=== PATIENT | male | born 1940 | race Caucasian/White ===

== ENCOUNTER → 2023-03-24 10:49 | Outpatient (REF) | payer MEDICARE, BC, SELFPAY ==
[2023-03-24 11:49] LABS: % Basophils 1.3 % (0-2); % Eosinophils 2.7 % (0-6); % Immature Granulocytes 0.3 % (0-0.5); % Lymphocytes 12.1 % (20.5-51.1); % Monocytes 7.9 % (1.7-9.3); % Neutrophils 75.7 % (42.2-75.2); Absolute Basophils 0.2 10^3/uL (0-0.2); Absolute Eosinophils 0.3 10^3/uL (0-0.7); Absolute Lymphocytes 1.5 10^3/uL (1.2-3.4); Absolute Neutrophils 9.5 10^3/uL (1.4-6.5); Hemoglobin 10.1 g/dL (13.0-18.0); Mean Corp Hgb Conc. 32.6 g/dL (33.0-37.0); Mean Corpuscular Hgb 29.3 pg (27.0-31.0); Mean Corpuscular Volume 89.9 fL (80.0-94.0); Mean Platelet Volume 11.3 fL (7.4-10.4); Nucleated Red Blood Cells % 0 % (-); Platelet Count 283 10^3/uL (130-400); Red Blood Cell Count 3.45 10^6/uL (4.70-6.10); Red Cell Dist. Width 13.8 % (11.5-14.5); White Blood Cell Count 12.6 10^3/uL (4.8-10.8)
[2023-03-24 11:50] LABS: Ionized Calcium 1.36 mMOL/L (1.15-1.33)
[2023-03-24 12:19] LABS: ALT (SGPT) 27 U/L (0-50); AST (SGOT) 26 U/L (17-59); Albumin 3.7 g/dl (3.5-5.0); Alkaline Phosphatase 78 U/L (38-126); Blood Urea Nitrogen 36 mg/dl (9-20); Calcium 10.3 mg/dl (8.4-10.2); Carbon Dioxide 24 mmol/L (22-30); Chloride 105 mmol/L (98-107); Glucose 99 mg/dl (70-99); Potassium 4.4 mmol/L (3.5-5.1); Sodium 139 mmol/L (135-145); Total Bilirubin 0.4 mg/dl (0.2-1.3); Total Protein 6.4 g/dl (6.3-8.2); eGFR 32.71
[2023-03-25 09:15] LABS: Intact PTH 120.8 pg/ml (13.6-85.8)
== END ==
LOC: REG 10:49
PROVIDERS: ATTENDING PHYSICIAN Internal Medicine Nephrology; FAMILY PHYSICIAN Internal Medicine; REFERRING PHYSICIAN Internal Medicine
DX: N18.32 Chronic kidney disease, stage 3b (principal)
CPT/HCPCS: 36415; 80053; 82330; 83970; 85025

== ENCOUNTER → 2023-04-07 10:20 | Outpatient (REF) | payer MEDICARE, BC, SELFPAY ==
[2023-04-07 11:59] LABS: Protein/creatinine Ratio 0.1; Urine Protein 9 mg/dl
[2023-04-07 12:23] LABS: Glycohemoglobin (HgbA1c) 5.9 % (4.0-5.6)
[2023-04-07 13:03] LABS: Blood Urea Nitrogen 48 mg/dl (9-20); Calcium 10.3 mg/dl (8.4-10.2); Carbon Dioxide 22 mmol/L (22-30); Chloride 110 mmol/L (98-107); Glucose 95 mg/dl (70-99); HDL Cholesterol 50 mg/dl; LDL Cholesterol, Calculated 52 mg/dl; Potassium 4.2 mmol/L (3.5-5.1); Sodium 141 mmol/L (135-145); Total Cholesterol 122 mg/dl (50-199); Triglyceride 100 mg/dl (10-149); Very Low Density Lipoprotein 20 mg/dl (0-30); eGFR 29.17
== END ==
LOC: REG 10:20
PROVIDERS: ATTENDING PHYSICIAN Specialist; FAMILY PHYSICIAN Internal Medicine; REFERRING PHYSICIAN Internal Medicine
DX: E78.2 Mixed hyperlipidemia (principal); R73.03 Prediabetes; I10 Essential (primary) hypertension
CPT/HCPCS: 36415; 80048; 80061; 82570; 83036; 84156

== ENCOUNTER → 2023-04-25 13:58 | Outpatient (REF) | payer MEDICARE, BC, SELFPAY ==
[2023-04-25 15:06] LABS: Blood Urea Nitrogen 47 mg/dl (9-20); Calcium 10.8 mg/dl (8.4-10.2); Carbon Dioxide 23 mmol/L (22-30); Chloride 106 mmol/L (98-107); Glucose 89 mg/dl (70-99); Potassium 4.4 mmol/L (3.5-5.1); Sodium 142 mmol/L (135-145); eGFR 30.85
== END ==
LOC: REG 13:58
PROVIDERS: ATTENDING PHYSICIAN Specialist; FAMILY PHYSICIAN Internal Medicine; OTHER PHYSICIAN Internal Medicine; REFERRING PHYSICIAN Internal Medicine Nephrology
DX: E78.2 Mixed hyperlipidemia (principal); E21.3 Hyperparathyroidism, unspecified; I10 Essential (primary) hypertension
CPT/HCPCS: 36415; 80048

== ENCOUNTER → 2023-07-14 10:00 | Outpatient (REF) | payer MEDICARE, BC, SELFPAY ==
[2023-07-14 11:11] LABS: Urine Albumin Negative (Neg - Trace); Urine Bilirubin Negative (Negative); Urine Character Clear (Clear); Urine Color Straw; Urine Glucose Negative (Negative); Urine Ketone Negative (Negative); Urine Leukocyte Negative (Negative); Urine Nitrite Negative (Negative); Urine Occult Blood Negative (Negative); Urine Specific Gravity 1.015 (<1.030); Urine Urobilinogen Negative (Neg - 1+)
[2023-07-14 11:18] LABS: % Basophils 1.9 % (0-2); % Eosinophils 4.1 % (0-6); % Immature Granulocytes 0.2 % (0-0.5); % Lymphocytes 21.1 % (20.5-51.1); % Monocytes 7.3 % (1.7-9.3); % Neutrophils 65.4 % (42.2-75.2); Absolute Basophils 0.1 10^3/uL (0-0.2); Absolute Eosinophils 0.3 10^3/uL (0-0.7); Absolute Lymphocytes 1.3 10^3/uL (1.2-3.4); Absolute Monocytes 0.5 10^3/uL (0.1-0.6); Absolute Neutrophils 4.1 10^3/uL (1.4-6.5); Hematocrit 30.9 % (39.0-52.0); Mean Corp Hgb Conc. 32.4 g/dL (33.0-37.0); Mean Corpuscular Hgb 29.3 pg (27.0-31.0); Mean Corpuscular Volume 90.6 fL (80.0-94.0); Mean Platelet Volume 11.4 fL (7.4-10.4); Nucleated Red Blood Cells % 0 % (-); Platelet Count 232 10^3/uL (130-400); Red Blood Cell Count 3.41 10^6/uL (4.70-6.10); Red Cell Dist. Width 13.2 % (11.5-14.5); White Blood Cell Count 6.3 10^3/uL (4.8-10.8)
[2023-07-14 11:51] LABS: ALT (SGPT) 32 U/L (0-50); AST (SGOT) 28 U/L (17-59); Albumin 4.2 g/dl (3.5-5.0); Alkaline Phosphatase 86 U/L (38-126); Blood Urea Nitrogen 42 mg/dl (9-20); Calcium 10.4 mg/dl (8.4-10.2); Carbon Dioxide 21 mmol/L (22-30); Chloride 111 mmol/L (98-107); Glucose 93 mg/dl (70-99); Phosphorus 3.8 mg/dl (2.5-4.5); Potassium 4.8 mmol/L (3.5-5.1); Sodium 141 mmol/L (135-145); Total Bilirubin 0.3 mg/dl (0.2-1.3); Total Protein 6.8 g/dl (6.3-8.2); eGFR 27.49
[2023-07-14 11:54] LABS: Urine Protein 9 mg/dl (0-12)
[2023-07-14 14:54] LABS: Intact PTH 217.3 pg/ml (13.6-85.8)
== END ==
LOC: REG 10:00
PROVIDERS: ATTENDING PHYSICIAN Internal Medicine; FAMILY PHYSICIAN Internal Medicine; REFERRING PHYSICIAN Internal Medicine
DX: N18.32 Chronic kidney disease, stage 3b (principal)
CPT/HCPCS: 36415; 80053; 81003; 81015; 82570; 83970; 84100; 84156; 85025

== ENCOUNTER → 2023-11-10 09:07 | Outpatient (REF) | payer MEDICARE, BC, SELFPAY ==
[2023-11-10 10:14] LABS: Urine Albumin Negative (Neg - Trace); Urine Bilirubin Negative (Negative); Urine Character Clear (Clear); Urine Color Yellow; Urine Glucose Negative (Negative); Urine Ketone Negative (Negative); Urine Leukocyte Trace (Negative); Urine Nitrite Negative (Negative); Urine Occult Blood Negative (Negative); Urine Urobilinogen Negative (Neg - 1+)
[2023-11-10 10:41] LABS: Urine Squamous Cell 0-2 /LPF (Few)
[2023-11-10 10:42] LABS: Urine Red Blood Cell 0-2 /HPF (0-2); Urine Urothelial Cell 0-2 /LPF (FEW)
[2023-11-10 10:47] LABS: Protein/creatinine Ratio 0.1; Urine Protein 6 mg/dl
[2023-11-10 11:25] LABS: % Basophils 1.3 % (0-2); % Eosinophils 3.1 % (0-6); % Immature Granulocytes 0.4 % (0-0.5); % Lymphocytes 18.6 % (20.5-51.1); % Monocytes 7.8 % (1.7-9.3); % Neutrophils 68.8 % (42.2-75.2); Absolute Basophils 0.1 10^3/uL (0-0.2); Absolute Eosinophils 0.2 10^3/uL (0-0.7); Absolute Lymphocytes 1.2 10^3/uL (1.2-3.4); Absolute Monocytes 0.5 10^3/uL (0.1-0.6); Absolute Neutrophils 4.6 10^3/uL (1.4-6.5); Hematocrit 32.1 % (39.0-52.0); Hemoglobin 10.2 g/dL (13.0-18.0); Mean Corp Hgb Conc. 31.8 g/dL (33.0-37.0); Mean Corpuscular Volume 91.2 fL (80.0-94.0); Mean Platelet Volume 11.6 fL (7.4-10.4); Nucleated Red Blood Cells % 0 % (-); Platelet Count 244 10^3/uL (130-400); Red Blood Cell Count 3.52 10^6/uL (4.70-6.10); Red Cell Dist. Width 13.4 % (11.5-14.5); White Blood Cell Count 6.7 10^3/uL (4.8-10.8)
[2023-11-10 12:09] LABS: ALT (SGPT) 32 U/L (0-50); AST (SGOT) 28 U/L (17-59); Albumin 4.4 g/dl (3.5-5.0); Alkaline Phosphatase 74 U/L (38-126); Blood Urea Nitrogen 50 mg/dl (9-20); Calcium 10.5 mg/dl (8.4-10.2); Carbon Dioxide 20 mmol/L (22-30); Chloride 112 mmol/L (98-107); Glucose 80 mg/dl (70-99); Phosphorus 3.5 mg/dl (2.5-4.5); Potassium 4.7 mmol/L (3.5-5.1); Sodium 146 mmol/L (135-145); Total Bilirubin 0.3 mg/dl (0.2-1.3); Total Protein 6.9 g/dl (6.3-8.2); eGFR 28.99
[2023-11-11 13:02] LABS: Intact PTH 204.6 pg/ml (13.6-85.8)
== END ==
LOC: REG 09:07
PROVIDERS: ATTENDING PHYSICIAN Internal Medicine; FAMILY PHYSICIAN Internal Medicine; OTHER PHYSICIAN Urology; REFERRING PHYSICIAN Internal Medicine
DX: N18.32 Chronic kidney disease, stage 3b (principal)
CPT/HCPCS: 36415; 80053; 81003; 81015; 82570; 83970; 84100; 84156; 85025

== ENCOUNTER → 2023-11-14 14:55 | Outpatient (REF) | payer MEDICARE, BC, SELFPAY | LOC: RCS 14:55 | PROVIDERS: ATTENDING PHYSICIAN Internal Medicine Cardiovascular Disease; FAMILY PHYSICIAN Internal Medicine | DX: I44.7 Left bundle-branch block, unspecified (principal); I05.9 Rheumatic mitral valve disease, unspecified; I47.29 Other ventricular tachycardia | CPT/HCPCS: 93306 ==

== ENCOUNTER → 2024-02-13 09:28 | Outpatient (REF) | payer MEDICARE, BC, SELFPAY ==
[2024-02-13 10:45] LABS: Urine Albumin Negative (Neg - Trace); Urine Bilirubin Negative (Negative); Urine Character Clear (Clear); Urine Color Yellow; Urine Glucose 3+ (Negative); Urine Ketone Negative (Negative); Urine Leukocyte Negative (Negative); Urine Nitrite Negative (Negative); Urine Occult Blood 2+ (Negative); Urine Urobilinogen Negative (Neg - 1+)
[2024-02-13 11:12] LABS: Urine Amorphous Seen; Urine Urothelial Cell 0-2 /LPF (FEW)
[2024-02-13 11:15] LABS: % Basophils 1.4 % (0-2); % Eosinophils 4.1 % (0-6); % Immature Granulocytes 0.4 % (0-0.5); % Lymphocytes 21.4 % (20.5-51.1); % Monocytes 7.4 % (1.7-9.3); % Neutrophils 65.3 % (42.2-75.2); Absolute Basophils 0.1 10^3/uL (0-0.2); Absolute Eosinophils 0.3 10^3/uL (0-0.7); Absolute Lymphocytes 1.6 10^3/uL (1.2-3.4); Absolute Monocytes 0.5 10^3/uL (0.1-0.6); Absolute Neutrophils 4.8 10^3/uL (1.4-6.5); Hematocrit 29.3 % (39.0-52.0); Hemoglobin 9.7 g/dL (13.0-18.0); Mean Corp Hgb Conc. 33.1 g/dL (33.0-37.0); Mean Corpuscular Hgb 30.5 pg (27.0-31.0); Mean Corpuscular Volume 92.1 fL (80.0-94.0); Mean Platelet Volume 11.7 fL (7.4-10.4); Nucleated Red Blood Cells % 0 % (-); Platelet Count 192 10^3/uL (130-400); Red Blood Cell Count 3.18 10^6/uL (4.70-6.10); Red Cell Dist. Width 12.6 % (11.5-14.5); White Blood Cell Count 7.3 10^3/uL (4.8-10.8)
[2024-02-13 11:32] LABS: Protein/creatinine Ratio 0.3; Urine Protein 17 mg/dl
[2024-02-13 12:00] LABS: ALT (SGPT) 27 U/L (0-50); AST (SGOT) 29 U/L (17-59); Albumin 4.5 g/dl (3.5-5.0); Alkaline Phosphatase 71 U/L (38-126); Blood Urea Nitrogen 48 mg/dl (9-20); Calcium 10.2 mg/dl (8.4-10.2); Carbon Dioxide 20 mmol/L (22-30); Chloride 108 mmol/L (98-107); Glucose 121 mg/dl (70-99); Magnesium 2.4 mg/dl (1.6-2.3); Phosphorus 3.7 mg/dl (2.5-4.5); Potassium 4.5 mmol/L (3.5-5.1); Sodium 140 mmol/L (135-145); Total Bilirubin 0.3 mg/dl (0.2-1.3); Total Protein 6.7 g/dl (6.3-8.2); eGFR 19.98
[2024-02-14 09:30] LABS: Intact PTH 205.5 pg/ml (13.6-85.8)
== END ==
LOC: REG 09:28
PROVIDERS: ATTENDING PHYSICIAN Internal Medicine; FAMILY PHYSICIAN Internal Medicine; OTHER PHYSICIAN Internal Medicine; REFERRING PHYSICIAN Urology
DX: N18.4 Chronic kidney disease, stage 4 (severe) (principal)
CPT/HCPCS: 36415; 80053; 81003; 81015; 82570; 83735; 83970; 84100; 84156; 85025

== ENCOUNTER → 2024-02-29 08:45 | Outpatient (REF) | payer MEDICARE, BC, SELFPAY ==
[2024-02-29 11:04] LABS: Blood Urea Nitrogen 44 mg/dl (9-20); Calcium 10.2 mg/dl (8.4-10.2); Carbon Dioxide 17 mmol/L (22-30); Chloride 109 mmol/L (98-107); Glucose 160 mg/dl (70-99); Potassium 4.6 mmol/L (3.5-5.1); Sodium 140 mmol/L (135-145); eGFR 26.12
== END ==
LOC: REG 08:45
PROVIDERS: ATTENDING PHYSICIAN Internal Medicine; FAMILY PHYSICIAN Internal Medicine; OTHER PHYSICIAN Urology; REFERRING PHYSICIAN Internal Medicine
DX: N18.4 Chronic kidney disease, stage 4 (severe) (principal)
CPT/HCPCS: 36415; 80048

== ENCOUNTER → 2024-03-05 10:08 | Outpatient (REF) | payer MEDICARE, BC, SELFPAY | LOC: RAD 10:08 | PROVIDERS: ATTENDING PHYSICIAN Urology; FAMILY PHYSICIAN Internal Medicine; OTHER PHYSICIAN Internal Medicine; OTHER PHYSICIAN Urology | DX: N40.1 Benign prostatic hyperplasia with lower urinary tract symptoms (principal); N13.8 Other obstructive and reflux uropathy; R35.1 Nocturia; N39.41 Urge incontinence | CPT/HCPCS: 76775 ==

== ENCOUNTER → 2024-04-09 09:12 | Outpatient (REF) | payer MEDICARE, BC, SELFPAY ==
[2024-04-09 10:28] LABS: Protein/creatinine Ratio 0.1; Urine Protein 10 mg/dl
[2024-04-09 10:31] LABS: Microalbumin, Random Urine 1.8 mg/dl (0.6-1.7); Microalbumin/creatinine Ratio 20.7 mg/g
[2024-04-09 10:43] LABS: ALT (SGPT) 31 U/L (0-50); AST (SGOT) 25 U/L (17-59); Albumin 3.9 g/dl (3.5-5.0); Alkaline Phosphatase 77 U/L (38-126); Blood Urea Nitrogen 43 mg/dl (9-20); Carbon Dioxide 19 mmol/L (22-30); Chloride 113 mmol/L (98-107); Glucose 92 mg/dl (70-99); Potassium 4.5 mmol/L (3.5-5.1); Sodium 140 mmol/L (135-145); Total Bilirubin 0.3 mg/dl (0.2-1.3); Total Protein 6.2 g/dl (6.3-8.2); eGFR 24.87
== END ==
LOC: REG 09:12
PROVIDERS: ATTENDING PHYSICIAN Internal Medicine; FAMILY PHYSICIAN Internal Medicine; OTHER PHYSICIAN Urology; REFERRING PHYSICIAN Internal Medicine
DX: N18.4 Chronic kidney disease, stage 4 (severe) (principal)
CPT/HCPCS: 36415; 80053; 82043; 82570; 84156

== ENCOUNTER → 2024-06-24 14:28 | Outpatient (REF) | payer MEDICARE, BC, SELFPAY | LOC: RAD 14:28 | PROVIDERS: ATTENDING PHYSICIAN Student in an Organized Health Care Education/Training Program; FAMILY PHYSICIAN Internal Medicine; OTHER PHYSICIAN Urology; REFERRING PHYSICIAN Internal Medicine | DX: M79.89 Other specified soft tissue disorders (principal); R60.0 Localized edema | CPT/HCPCS: 93971 ==

== ENCOUNTER 2024-06-25 10:51 | Emergency (ER) | payer MEDICARE, BC, SELFPAY ==
[2024-06-25 11:02] VITALS: BP 143/61
[2024-06-25 11:31] LABS: % Basophils 1.3 % (0-2); % Eosinophils 7.1 % (0-6); % Immature Granulocytes 0.3 % (0-0.5); % Lymphocytes 16.3 % (20.5-51.1); % Monocytes 9.6 % (1.7-9.3); % Neutrophils 65.4 % (42.2-75.2); Absolute Basophils 0.1 10^3/uL (0-0.2); Absolute Eosinophils 0.5 10^3/uL (0-0.7); Absolute Lymphocytes 1.2 10^3/uL (1.2-3.4); Absolute Monocytes 0.7 10^3/uL (0.1-0.6); Absolute Neutrophils 4.7 10^3/uL (1.4-6.5); Hematocrit 28.5 % (39.0-52.0); Hemoglobin 9.4 g/dL (13.0-18.0); Mean Corpuscular Volume 91.1 fL (80.0-94.0); Mean Platelet Volume 11.3 fL (7.4-10.4); Nucleated Red Blood Cells % 0 % (-); Platelet Count 203 10^3/uL (130-400); Red Blood Cell Count 3.13 10^6/uL (4.70-6.10); Red Cell Dist. Width 12.7 % (11.5-14.5); White Blood Cell Count 7.2 10^3/uL (4.8-10.8)
[2024-06-25 11:57] LABS: ALT (SGPT) 27 U/L (0-50); AST (SGOT) 23 U/L (17-59); Albumin 3.8 g/dl (3.5-5.0); Alkaline Phosphatase 75 U/L (38-126); Blood Urea Nitrogen 45 mg/dl (9-20); Calcium 10.3 mg/dl (8.4-10.2); Carbon Dioxide 22 mmol/L (22-30); Chloride 115 mmol/L (98-107); Glucose 144 mg/dl (70-99); Potassium 4.5 mmol/L (3.5-5.1); Sodium 144 mmol/L (135-145); Total Bilirubin 0.3 mg/dl (0.2-1.3); eGFR 24.72
--- NOTE | 2024-06-25 12:34 | ED.GENMED ---
History of Present Illness
General
Chief Complaint: Swelling
Source: patient, records and spouse
Exam Limitations: none
Time Seen by Provider: 06/25/24 12:07
Nursing documentation reviewed up to this point in time: agreed with
History of Present Illness
History of Present Illness:
84-year-old male with past medical history of hypertension, hyperlipidemia, CKD, [place]str�m's macroglobulinemia who presents to the emergency room with his for evaluation of left arm swelling and pain. Patient was in [place] 6 weeks ago and
suffered a dog bite to the volar aspect of the wrist. He says that he had some rather immediate bruising to the entire ventral aspect of his forearm there after. He was initially seen in the ER there�fortunately his tetanus was up-to-date and he
was given a 3-day course of antibiotics (he is not sure which one). He says that since then localized bruising has resolved but he has bruising throughout the forearm now he has had increased edema, redness, pain over the past few days. He does
note that since this initial dog bite, he did have another minor dog bite to the mid forearm in the same area from his dog. He discussed with his doctor who sent him for an outpatient ultrasound of his arm yesterday which was negative for DVT. He
came into the ER with concern that this could be an infection. No fever chills or any other symptoms reported.
Past History
Past History
ED Past Medical History: Other (Legally blind in right eye)
ED Past Surgical History: Other (Hernia repair)
Social History
Tobacco: Non-smoker
Personal:
Living: with family
Review of Systems
Review of Systems
All Other Systems: ROS reviewed and negative except as documented in HPI and ROS
Constitutional: Denies fever
Musculoskeletal: Reports edema
Skin: Reports other (Redness and swelling of the left arm)
Phy Exam
Physical Exam
Physical Exam:
General: Well appearing and non-toxic
HEENT: protecting airway
Neck: appears supple
CV: No evidence of cyanosis
Resp: No accessory muscle use
Abd: Non-distended
Extremities: Patient has edema of the left forearm, old appearing bruising layered throughout the forearm and on the dorsum of the hand; no wound noted on the wrist where he reports he had his initial bite but he does have a small puncture wound
volar aspect mid forearm with surrounding erythema, warmth, redness but no drainage
Neuro: Alert
Psych: Normal affect
Skin: Intact
Scores
Heart Failure Risk
Heart Failure Risk Score: Not Applicable
Heart Score for Chest Pain Patients
STEMI patient?: Not applicable
Withdrawal Assessment of Alcohol
Withdrawal Assessment Completed?: Not applicable
Course
Orders/Labs/Results
Orders:
Orders
06/25/24 11:14
Complete Blood Count/With Diff Urgent
Comprehensive Metabolic Panel Urgent
06/25/24 12:31
Amoxicillin 500 mg/Clav 125 mg [Augmentin 500 mg/125 mg] 1 tablet PO NOW STA
Abnormal Lab Results
06/25/24
11:14
RBC 3.13 L 10^6/uL
(4.70-6.10)
Hgb 9.4 L g/dL
(13.0-18.0)
Hct 28.5 L %
(39.0-52.0)
MPV 11.3 H fL
(7.4-10.4)
Absolute Monos (auto) 0.7 H 10^3/uL
(0.1-0.6)
Lymphocytes % 16.3 L %
(20.5-51.1)
Monocytes % 9.6 H %
(1.7-9.3)
Eosinophils % 7.1 H %
(0-6)
Chloride 115 H mmol/L
(98-107)
BUN 45 H mg/dl
(9-20)
Creatinine 2.5 H mg/dL
(0.7-1.3)
Glucose 144 H mg/dl
(70-99)
Calcium 10.3 H mg/dl
(8.4-10.2)
Total Protein 6.0 L g/dl
(6.3-8.2)
06/25/24 11:14
06/25/24 11:14
Vital Signs
Initial and Last Documented VS:
Initial Vital Signs
Temp Pulse Resp BP Pulse Ox
36.5 C 92 18 143/61 99
06/25/24 11:02 06/25/24 11:02 06/25/24 11:02 06/25/24 11:02 06/25/24 11:02
Last Documented Vital Signs
Temp Pulse Resp BP Pulse Ox
36.5 C 92 18 143/61 99
06/25/24 11:02 06/25/24 11:02 06/25/24 11:02 06/25/24 11:02 06/25/24 11:02
MDM/Problems Addressed
Differential Diagnosis Includes:
Cellulitis, DVT, hematoma
MDM/Problems Addressed:
84-year-old male presents for evaluation of swelling, pain, redness of the left forearm after dog bites as above�had an initial bite 6 weeks ago with subsequent hematoma�hematoma slowly resolving but had subsequent dog bite now having increased
redness, swelling, pain. Vitals and exam as above. He had labs sent in triage including a CBC and a CMP which shows stable anemia and stable chronic kidney disease. Reviewed outpatient ultrasound that was done yesterday it was negative for DVT.
Suspect that some of the swelling and skin discoloration is due to resolving hematoma but there certainly appears to be superimposed component of cellulitis. He has no fluctuance or abscess appreciable on exam. He is not septic. I think he is a
reasonable candidate for oral antibiotic therapy. Will treat with Augmentin for extended course. Dosage adjusted based on GFR. Follow-up with PCP as an outpatient. Patient feels comfortable with this plan. All questions answered.
Chronic conditions affecting care:
CKD
*Radiology
Radiology exam reviewed: radiology read reviewed
*Pulse Oximetry
Patient hypoxic: no
*Critical Care Note
Total Time (30-74mins, 75-104mins- exclusive of procedures): Not Applicable
Data Reviewed
Review of Other/Old Records Reveals: Radiology Studies
Source: patient, records and spouse
ED Attending Note
-
Portions of this chart may have been created with voice recognition software.� Occasional wrong word or��sound alike� substitutions may have occurred due to the inherent limitations of voice recognition software.
Discharge Plan
Departure
Patient Disposition: Home (Routine Discharge)
Date of Disposition: 06/25/24
Time of Disposition: 12:38
Patient with high blood pressure during this ER visit?: Yes
Discharge Problem:
Cellulitis, Hematoma of arm
Instructions: Cellulitis (skin infection) in adults - ED discharge instructions
Prescriptions:
New
amoxicillin-pot clavulanate 500-125 mg tablet
1 tab PO BID Qty: 20 0RF
No Action
latanoprost 0.005 % Drops
1 drp OPHTHALMIC (EYE) DAILY
famotidine 10 mg Tablet
10 mg PO BID PRN (Reason: indigestion)
sildenafil 25 mg Tablet
25 mg PO DAILY
alprazolam 0.25 mg Tablet
0.25 mg PO DAILY PRN (Reason: anxiety)
tamsulosin 0.4 mg Capsule
0.8 mg PO DAILY
amitriptyline 10 mg Tablet
10 mg PO HS
buspirone 10 mg Tablet
10 mg PO BID
rosuvastatin 20 mg Tablet
20 mg PO DAILY
bupropion HCl 150 mg Tablet Extended Release 24 Hr
150 mg PO DAILY
cholecalciferol (vitamin D3) 50 mcg (2,000 unit) Tablet
50 mcg PO DAILY
Brukinsa 80 mg Capsule
160 mg PO BID
Activity Restrictions/Additional Instructions:
Thank you for visiting the Emergency Department at [facility].
1. Please schedule a follow up appointment as directed. Call first thing tomorrow morning to make an appointment.
2. If indicated, please take your medications as instructed and indicated on discharge paperwork.
3. If any of your symptoms do not improve, or persist, or become more severe within 6-12 hours, please return to the emergency department for further care.
4. Please return to the emergency department if you develop a headache, neck pain/stiffness, fever greater than 100.4F, chest pain, shortness of breath, persistent nausea, vomiting, slurred speech, difficulty walking, numbness/tingling, weakness,
signs of infection or any other symptoms that are worrisome to you.
Please call [phone] if you have any questions.
Interventions
Interventions:
*Risk Screen - Suicide Last Done: 06/25/24 11:02
*General Assessment Last Done: 06/25/24 11:02
*ED COVID-19 Vaccine History Last Done: 06/25/24 11:02
Discharge Date and Time
Print Language: KOREAN
[2024-06-25] MEDS: AUGMENTIN 500 MG/125 MG 1 TABLET PO (12:43)
== END 2024-06-25 12:56 | disposition home or self-care (01) ==
LOC: EMR 10:51
PROVIDERS: Student in an Organized Health Care Education/Training Program; EMERGENCY PHYSICIAN Emergency Medicine; FAMILY PHYSICIAN Internal Medicine
DX: L03.114 Cellulitis of left upper limb (principal); S50.12XA Contusion of left forearm, initial encounter; S51.832A Puncture wound without foreign body of left forearm, initial encounter; W54.0XXA Bitten by dog, initial encounter; I12.9 Hypertensive chronic kidney disease with stage 1 through stage 4 chronic kidney disease, or unspecified chronic kidney disease; N18.9 Chronic kidney disease, unspecified; D64.9 Anemia, unspecified; E78.5 Hyperlipidemia, unspecified
CPT/HCPCS: 99283; 80053; 85025

== ENCOUNTER 2024-07-01 16:40 | Inpatient (IN) | payer MEDICARE, BC, SELFPAY ==
[2024-07-01 11:38] VITALS: BP 101/68
[2024-07-01 12:16] LABS: ALT (SGPT) 28 U/L (0-50); AST (SGOT) 21 U/L (17-59); Albumin 4.1 g/dl (3.5-5.0); Alkaline Phosphatase 71 U/L (38-126); Blood Urea Nitrogen 47 mg/dl (9-20); Calcium 10.1 mg/dl (8.4-10.2); Carbon Dioxide 21 mmol/L (22-30); Chloride 112 mmol/L (98-107); Glucose 89 mg/dl (70-99); Potassium 4.2 mmol/L (3.5-5.1); Sodium 142 mmol/L (135-145); Total Bilirubin 0.3 mg/dl (0.2-1.3); Total Protein 6.6 g/dl (6.3-8.2); eGFR 27.32
[2024-07-01 12:18] LABS: % Basophils 1.1 % (0-2); % Eosinophils 8.6 % (0-6); % Immature Granulocytes 0.4 % (0-0.5); % Neutrophils 63.9 % (42.2-75.2); Absolute Basophils 0.1 10^3/uL (0-0.2); Absolute Eosinophils 0.6 10^3/uL (0-0.7); Absolute Lymphocytes 0.9 10^3/uL (1.2-3.4); Absolute Monocytes 0.9 10^3/uL (0.1-0.6); Absolute Neutrophils 4.6 10^3/uL (1.4-6.5); Hematocrit 28.9 % (39.0-52.0); Hemoglobin 9.5 g/dL (13.0-18.0); Mean Corp Hgb Conc. 32.9 g/dL (33.0-37.0); Mean Corpuscular Hgb 30.2 pg (27.0-31.0); Mean Corpuscular Volume 91.7 fL (80.0-94.0); Mean Platelet Volume 11.6 fL (7.4-10.4); Nucleated Red Blood Cells % 0 % (-); Platelet Count 211 10^3/uL (130-400); Red Blood Cell Count 3.15 10^6/uL (4.70-6.10); Red Cell Dist. Width 12.8 % (11.5-14.5); White Blood Cell Count 7.3 10^3/uL (4.8-10.8)
--- NOTE | 2024-07-01 14:11 | ED.GENMED ---
History of Present Illness
General
Chief Complaint: Skin Problem
Source: patient and spouse
Exam Limitations: none
Time Seen by Provider: 07/01/24 13:06
Nursing documentation reviewed up to this point in time: agreed with
History of Present Illness
History of Present Illness:
The patient is a pleasant 84-year-old man with a past medical history of multiple myeloma and monoclonal gammapathy who presents with persistent redness, bruising, warmth and swelling of his left hand and forearm. Patient reports that he has been
dealing with symptoms in this area of his body ever since getting bitten by a dog in his left hand in [place] this past May. Patient reports that at the time of the bite, he was placed on antibiotics and the area had appeared bruised. Patient
reports that about a week ago, he developed redness, swelling and pain of his left forearm and was evaluated at [place] emergency department for this 4 days ago and placed on Augmentin. Patient reports that despite the Augmentin, he is having
worsening redness, swelling and warmth of the left forearm extending into his left hand. He denies fevers and chills. He denies weakness or numbness. He reports he is followed by a [place] oncologist with the name of Dr. Hernandez. He
denies injury to the area
Past History
Past History
ED Past Medical History: Cancer (Multiple myeloma, monoclonal gammopathy), Other (Legally blind in right eye) and Other (Chronic kidney disease)
ED Past Surgical History: Other (Hernia repair)
Social History
Tobacco: Non-smoker
Alcohol: Other
Drug: None
Personal:
Living: with family
Employment: Other
Family History
Family History: Other
Review of Systems
Review of Systems
Allergies reviewed?: Yes
All Other Systems: ROS reviewed and negative except as documented in HPI and ROS
Constitutional: Reports no symptoms
EENT: Reports no symptoms
Respiratory: Reports no symptoms
Cardiac: Reports no symptoms
ABD/GI: Reports no symptoms
: Reports no symptoms
Skin: Reports other
Neurological: Reports no symptoms
Endocrine: Reports no symptoms
Hematologic/Lymphatic: Reports bruising (Left hand and forearm)
Psychiatric: Reports no symptoms
Phy Exam
Physical Exam
Physical Exam:
Physical Exam
General: no apparent distress, not acutely ill
Neck: supple.
Heart: s1/s2 regular rate and rhythm, no murmur. equal radial pulses.
Lungs: no acute respiratory distress. clear bilaterally
Abdomen: normal bowel sounds. not tender. no CVAT
Neuro: alert and oriented. no focal neurological deficits
Skin: Patient's left forearm and hand is swollen, warm, slightly tender, and ecchymotic in multiple areas. He has excellent cap refill and pulses in bilateral upper extremities. Tracks up to area just proximal to left
elbow
Psychiatric: well kept. interactive and cooperative
Extremities: no edema. no calf tenderness. negative homans. good distal pulses
Course
Orders/Labs/Results
Orders:
Orders
07/01/24 11:49
CMP [Comprehensive Metabolic Panel] Urgent
Complete Blood Count/With Diff Urgent
07/01/24 14:11
US Arms, Left [US Periph Venous UPPER Ext LT] Urgent
Comment:
Reason For Exam: swelling, warm bruising L arm
07/01/24 15:30
Vancomycin [Vancocin] 1,500 mg 0.9% Sodium Chloride 500 ml [Nss] 500 ml IV NOW
Abnormal Lab Results
07/01/24
11:49
RBC 3.15 L 10^6/uL
(4.70-6.10)
Hgb 9.5 L g/dL
(13.0-18.0)
Hct 28.9 L %
(39.0-52.0)
MCHC 32.9 L g/dL
(33.0-37.0)
MPV 11.6 H fL
(7.4-10.4)
Absolute Lymphs (auto) 0.9 L 10^3/uL
(1.2-3.4)
Absolute Monos (auto) 0.9 H 10^3/uL
(0.1-0.6)
Lymphocytes % 13.0 L %
(20.5-51.1)
Monocytes % 13.0 H %
(1.7-9.3)
Eosinophils % 8.6 H %
(0-6)
Chloride 112 H mmol/L
(98-107)
Carbon Dioxide 21 L mmol/L
(22-30)
BUN 47 H mg/dl
(9-20)
Creatinine 2.3 H mg/dL
(0.7-1.3)
07/01/24 11:49
07/01/24 11:49
Vital Signs
Initial and Last Documented VS:
Initial Vital Signs
Temp Pulse Resp BP Pulse Ox
97.6 F 102 18 101/68 99
07/01/24 11:38 07/01/24 11:38 07/01/24 11:38 07/01/24 11:38 07/01/24 11:38
Last Documented Vital Signs
Temp Pulse Resp BP Pulse Ox
97.6 F 102 18 101/68 99
07/01/24 11:38 07/01/24 11:38 07/01/24 11:38 07/01/24 11:38 07/01/24 11:38
MDM/Problems Addressed
Differential Diagnosis Includes:
Persistent cellulitis of left upper extremity, ecchymoses of left upper extremity, deep space infection of left upper extremity
MDM/Problems Addressed:
Patient presents with subacute and acute redness, swelling and warmth to left upper extremity
Chronic conditions affecting care:
Patient may have extensive bruising due to the fact that he has bone marrow cancer
*Radiology
Radiology exam reviewed: radiology read reviewed
*Pulse Oximetry
Patient hypoxic: no
*EKG
Interpreted by ED Provider?: NA
*Php Website Developer Interpretation
Rate: Php Website Developer- N/A
*Critical Care Note
Total Time (30-74mins, 75-104mins- exclusive of procedures): Not Applicable
Data Reviewed
Review of Other/Old Records Reveals: Radiology Studies (Duplex ultrasound of left upper extremity from 06/24/2024 shows no sign of DVT)
Source: patient
Patient Management
Social determinants of health affecting care: Living situation and Strong social support
ED Attending Note
-
Portions of this chart may have been created with voice recognition software.� Occasional wrong word or��sound alike� substitutions may have occurred due to the inherent limitations of voice recognition software.
Discharge Plan
Departure
Patient Disposition: Admit
Date of Disposition: 07/01/24
Time of Disposition: 15:25
Admit to: Med/Surg
Presentation/result/management discussed w/ accepting MD/DO: Hospitalist
Patient with high blood pressure during this ER visit?: Yes
Condition: Good
Covid-19: Not Applicable
Discharge Problem:
Cellulitis of left arm
Prescriptions:
No Action
latanoprost 0.005 % Drops
1 drp OPHTHALMIC (EYE) DAILY
famotidine 10 mg Tablet
10 mg PO BID PRN (Reason: indigestion)
sildenafil 25 mg Tablet
25 mg PO DAILY
alprazolam 0.25 mg Tablet
0.25 mg PO DAILY PRN (Reason: anxiety)
tamsulosin 0.4 mg Capsule
0.8 mg PO DAILY
amitriptyline 10 mg Tablet
10 mg PO HS
buspirone 10 mg Tablet
10 mg PO BID
rosuvastatin 20 mg Tablet
20 mg PO DAILY
bupropion HCl 150 mg Tablet Extended Release 24 Hr
150 mg PO DAILY
cholecalciferol (vitamin D3) 50 mcg (2,000 unit) Tablet
50 mcg PO DAILY
Brukinsa 80 mg Capsule
160 mg PO BID
amoxicillin-pot clavulanate 500-125 mg tablet
1 tab PO BID Qty: 20 0RF
Referrals:
Preston Lee MD [Family Provider] -
Interventions
Interventions:
*Risk Screen - Suicide Last Done: 07/01/24 11:38
*General Assessment Last Done: 07/01/24 11:38
Discharge Date and Time
Print Language: UZBEK
--- NOTE | 2024-07-01 15:24 | HPS.HSE ---
Addendum entered and electronically signed by Arabella Lopez PA-C 07/01/24 18:59:
Correction
DVT proph: SC Heparin
Original Note:
Family Physician
-
Family Physician: Preston Lee MD
Chief Complaint
-
Swelling and Bruising Left Forearm
History of Present Illness
Patient is an 84 y.o male past medical history of multiple myeloma, monoclonal gammopathy, chronic kidney disease, hypertension, hyperlipidemia, anxiety/depression and BPH who presents with worsening swelling and bruising of the left hand. Patient
was bite by a dog about 6 weeks ago while in [place]. He completed a coarse of antibiotics at the time of the bite. He was seen here at the [facility] emergency department 4 days ago due to redness, swelling and pain of the left forearm.
He was placed on Augmentin without any improvement in symptoms prompting him to the return to the emergency department today. He denies any fevers, sweats or chills.
Medical History
Past Medical History
Past Medical History: Reports Other
Additional Past Medical History:
Multiple Myeloma
IgM Monoclonal Gammopathy
CKD Stage IV
Essential Hypertension
Hyperlipidemia
Anxiety / Depression
BPH
Bladder Cancer s/p TURBT
Past Surgical History: Reports Other
Additional Past Surgical History:
Hernia Repair
Appendectomy
TURBT
Kidney Stone
Social History
Tobacco: Non-smoker
Alcohol: Occasional (Once a month)
Family History
Family History: Not pertinent
Allergies / Home Medications
Allergies reflects when Allergies were last updated in [facility].
Home Medications with original date entered in [facility]
Allergy/Medication List:
Allergies
Allergy/AdvReac Type Severity Reaction Status Date / Time
metoprolol Allergy Unknown Unknown Verified 07/01/24 11:43
quinine Allergy Unknown Unknown Verified 07/01/24 11:43
Home Medications
alprazolam 0.25 mg tablet 0.25 mg PO DAILYPRN PRN anxiety 01/30/23
bupropion HCl 150 mg 24 hr tablet, extended release 150 mg PO DAILY 01/30/23
buspirone 10 mg tablet 15 mg PO BID 01/30/23
cholecalciferol (vitamin D3) 50 mcg (2,000 unit) tablet 50 mcg PO DAILY 01/30/23
latanoprost 0.005 % eye drops 1 drp BOTH EYES HS 01/30/23
rosuvastatin 20 mg tablet 20 mg PO DAILY 01/30/23
tamsulosin 0.4 mg capsule 0.4 mg PO BID 01/30/23
amoxicillin 500 mg-potassium clavulanate 125 mg tablet 1 tab PO BID #20 tabs 06/25/24
acyclovir 400 mg tablet 400 mg PO BID 07/01/24
daratumumab 1,800 lp-zlkaqvlbwlsxy-[id number] 30,000 unit/15 mL subcut soln (Darzalex Faspro) 15 ml SC Q4W 07/01/24
tadalafil 5 mg tablet 5 mg PO DAILYPRN PRN ed 07/01/24
Review of Systems
-
A 12 point ROS was completed and negative except as noted: Yes
Constitutional: Denies Fever
Respiratory: Denies Cough or Trouble Breathing
Cardiac: Denies Chest Pain or Palpitations
Abdomen/GI: Denies Abdominal Pain, Nausea, Vomiting or Diarrhea
Physical Exam
Vital Signs
Vital Signs
Temp Pulse Resp BP Pulse Ox
97.6 F 102 18 101/68 99
07/01/24 11:38 07/01/24 11:38 07/01/24 11:38 07/01/24 11:38 07/01/24 11:38
Physical Exam
General: Comfortable and Conversant
HEENT: NormoCephalic, Anicteric, Moist mucous membranes and Atraumatic
Respiratory: Clear and Non Labored Respirations; No Wheezes, Rales or Rhonchi
Cardiac: S1/S2 and Regular Rhythm; No Murmur
GI: Soft, Non Tender, Non Distended and Normal Bowel Sounds
Rectal: Deferred by Provider
Musculoskeletal: No Clubbing and No Cyanosis
Skin: Warm, Dry and Other (Mild erythema with notable edema and increased warmth to touch of left upper extremity)
Neuro: Awake, Alert, Oriented and Nonfocal/grossly intact
Psych: Calm
Laboratory Results
-
07/01/24 11:49
07/01/24 11:49
Laboratory Results
Total Bilirubin 0.3 mg/dl (0.2-1.3) 07/01/24 11:49
AST 21 U/L (17-59) 07/01/24 11:49
ALT 28 U/L (0-50) 07/01/24 11:49
Alkaline Phosphatase 71 U/L (38-126) 07/01/24 11:49
Data Reviewed
-
Ultrasound: Report Reviewed by me
Lab Data: Labs Reviewed by me
Old Records: Reviewed
Impression/Plan
-
Left Upper Extremity Cellulitis, likely residual infection from prior dog bite in immunocompromised patient
-Continue Unasyn
Multiple Myeloma
-Patient maintained on Darzalex as outpatient
Chronic Normocytic Anemia
-Hgb at baseline
CKD Stage IV
-Creatinine at baseline
Hyperlipidemia
-Continue rosuvastatin
Anxiety / Depression
-Continue bupropion and buspirone
-Continue alprazolam prn
BPH
-Continue tamsulosin
DVT proph: Lovenox
Code Status: Full Code
[2024-07-01 15:43] VITALS: BMI 20.5
--- NOTE | 2024-07-01 16:09 | W.PN.UPDATE ---
Update Note
Progress Note Update
This is an addendum to H&P written by Arabella Silva on 07/01/2024. Patient seen and examined independently with PA.
84-year-old male past medical history of multiple myeloma on chemotherapy, monoclonal gammopathy, legally blind in right eye, CKD, presenting with persistent redness, bruising and warmth and swelling of his left hand and forearm. This has been
occurring since he got bit by dog in [place] in May. He was treated with antibiotics at the time without full improvement. He developed redness bruising and warmth on his left forearm and started on Augmentin in the ER 4 days ago with worsening
symptoms. No fevers or chills.
Mild tachycardia.
Labs show stable CKD. Stable anemia.
Venous ultrasound shows no evidence of DVT.
Presentation consistent with cellulitis of the left upper extremity likely from progression of residual infection from prior dog bite in immunocompromised patient. Unasyn.
[2024-07-01] MEDS: VANCOCIN 530 MG IV (16:21)
--- NOTE | 2024-07-01 18:32 | PTCARENOTE ---
pt arrived to unit at 1827 via stretcher from ED. pt ambulated from hallway to bed w/out assit. Pt AAOx3, oriented to room. Heart regular, positive BS with firm abdomen, lung sounds clear b/l. VSS. no medications approved by pharmacy at this time,
pt updated at the bedside
[2024-07-01 18:39] VITALS: BP 139/59
[2024-07-01 18:40] VITALS: BMI 22.0
[2024-07-01] MEDS: FLOMAX 0.4 MG PO (20:43)
[2024-07-01] MEDS: ZOVIRAX 400 MG PO (20:43)
[2024-07-01] MEDS: BUSPAR 15 MG PO (20:43)
[2024-07-01] MEDS: HEPARIN 5000 UNITS SC (20:47)
[2024-07-01] MEDS: UNASYN IV (22:16)
[2024-07-01] MEDS: XALATAN OPHTHALMIC SOLUTION 1 DROP BOTH EYES (22:17)
[2024-07-01 23:35] VITALS: BP 103/42
[2024-07-02 07:46] LABS: Hematocrit 25.8 % (39.0-52.0); Hemoglobin 8.7 g/dL (13.0-18.0); Mean Corp Hgb Conc. 33.7 g/dL (33.0-37.0); Mean Corpuscular Hgb 30.3 pg (27.0-31.0); Mean Corpuscular Volume 89.9 fL (80.0-94.0); Mean Platelet Volume 11.7 fL (7.4-10.4); Platelet Count 192 10^3/uL (130-400); Red Blood Cell Count 2.87 10^6/uL (4.70-6.10); Red Cell Dist. Width 12.6 % (11.5-14.5); White Blood Cell Count 6.8 10^3/uL (4.8-10.8)
[2024-07-02 08:10] VITALS: BP 125/58
[2024-07-02 08:34] LABS: Blood Urea Nitrogen 42 mg/dl (9-20); Calcium 9.8 mg/dl (8.4-10.2); Carbon Dioxide 20 mmol/L (22-30); Chloride 117 mmol/L (98-107); Estimated Creatinine Clearance 23 ml/min; Glucose 105 mg/dl (70-99); Potassium 4.2 mmol/L (3.5-5.1); Sodium 144 mmol/L (135-145); eGFR 30.47
[2024-07-02] MEDS: BUSPAR 15 MG PO ×2 (09:01→20:46)
[2024-07-02] MEDS: ZOVIRAX 400 MG PO ×2 (09:02→20:46)
[2024-07-02] MEDS: CRESTOR 20 MG PO (09:02)
[2024-07-02] MEDS: HEPARIN 5000 UNITS SC ×2 (09:03→20:46)
[2024-07-02] MEDS: UNASYN IV ×2 (09:03→22:32)
[2024-07-02] MEDS: WELLBUTRIN XL (24 hour extended release) 150 MG PO (09:03)
[2024-07-02] MEDS: FLOMAX 0.4 MG PO ×2 (09:03→20:47)
--- NOTE | 2024-07-02 12:30 | W.PN.HOSP.TC ---
Today's Communication/Plan
-
Continue IV antibiotics
Assessment / Plan
Assessment / Plan
Physical exam:
General: Well Developed, Well Nourished and No Apparent Distress
HEENT: Normocephalic, Atraumatic and Moist Mucous Membranes
Respiratory: Clear to Auscultation; Negative Wheezes, Rales or Rhonchi
Cardiac: Regular Rhythm and S1/S2
GI: Soft, Nontender and Nondistended
Musculoskeletal: No Clubbing, No Cyanosis and No Edema
Neuro: Awake, Alert and Oriented, (Mild erythema with notable edema and increased warmth to touch of left upper extremity overall improving)
Psych: Calm
A/P:
Left Upper Extremity Cellulitis, likely residual infection from prior dog bite in immunocompromised patient
-Continue IV Unasyn
- Doppler no DVT
Multiple Myeloma
-Patient maintained on Darzalex as outpatient
Chronic Normocytic Anemia
-Hgb at baseline with mild drift down
CKD Stage IV
-Creatinine at baseline
Hyperlipidemia
-Continue rosuvastatin
Anxiety / Depression
-Continue bupropion and buspirone
-Continue alprazolam prn
BPH
-Continue tamsulosin
DVT proph: Heparin SQ
Code Status: Full Code
Anticipated Discharge: 24 - 48 hours
Subjective/Interval History
-
Date of Service: July 02, 2024
Patient feels erythema and swelling in left upper extremity is better. Afebrile
Objective Data
-
Labs:
Laboratory Results
07/02/24
07:03
WBC 6.8
Hgb 8.7 L
Hct 25.8 L
Plt Count 192
Sodium 144
Potassium 4.2
Chloride 117 H
Carbon Dioxide 20 L
BUN 42 H
Creatinine 2.1 H
Glucose 105 H
Calcium 9.8
Vital Signs:
Vital Signs
Temp Pulse Resp BP Pulse Ox
98.9 F 88 14 125/58 98
07/02/24 08:10 07/02/24 08:10 07/02/24 08:10 07/02/24 08:10 07/02/24 08:10
--- NOTE | 2024-07-02 14:27 | CM ---
Patient seen at bedside
Dx: LUE cellulitis
PMH: myelodysplastic syndrome
Explained CM role
IA Completed.
Lives with in a multistory home, 3 steps to enter, flight of stairs to bedroom, powder room on 1st loo
PLOF: independent
Denies DME
Denies VN/SNF
Denies insecurities
PCP: Preston Taveras
Pharmacy: [facility]
PLAN: home when stable, currently no needs, CM will continue to follow
[2024-07-02] MEDS: TYLENOL 650 MG PO (15:23)
[2024-07-02 15:44] VITALS: BP 122/53
[2024-07-02] MEDS: MYLICON 80 MG PO (21:08)
[2024-07-02] MEDS: XALATAN OPHTHALMIC SOLUTION 1 DROP BOTH EYES (22:33)
[2024-07-03 06:48] LABS: % Basophils 1.3 % (0-2); % Eosinophils 9.1 % (0-6); % Immature Granulocytes 0.4 % (0-0.5); % Lymphocytes 14.6 % (20.5-51.1); % Monocytes 13.6 % (1.7-9.3); Absolute Basophils 0.1 10^3/uL (0-0.2); Absolute Eosinophils 0.7 10^3/uL (0-0.7); Absolute Lymphocytes 1.2 10^3/uL (1.2-3.4); Absolute Monocytes 1.1 10^3/uL (0.1-0.6); Absolute Neutrophils 4.9 10^3/uL (1.4-6.5); Hematocrit 27.4 % (39.0-52.0); Hemoglobin 9.2 g/dL (13.0-18.0); Mean Corp Hgb Conc. 33.6 g/dL (33.0-37.0); Mean Corpuscular Hgb 30.1 pg (27.0-31.0); Mean Corpuscular Volume 89.5 fL (80.0-94.0); Mean Platelet Volume 11.3 fL (7.4-10.4); Nucleated Red Blood Cells % 0 % (-); Platelet Count 218 10^3/uL (130-400); Red Blood Cell Count 3.06 10^6/uL (4.70-6.10); Red Cell Dist. Width 12.5 % (11.5-14.5)
--- NOTE | 2024-07-03 07:29 | W.PN.HOSP.TC ---
Today's Communication/Plan
-
Antibiotics. Stool testing.
Assessment / Plan
Assessment / Plan
Physical exam:
General: Well Developed, Well Nourished and No Apparent Distress
HEENT: Normocephalic, Atraumatic and Moist Mucous Membranes
Respiratory: Clear to Auscultation; Negative Wheezes, Rales or Rhonchi
Cardiac: Regular Rhythm and S1/S2
GI: Soft, Nontender and Nondistended
Musculoskeletal: No Clubbing, No Cyanosis and No Edema
Neuro: Awake, Alert and Oriented, (Mild erythema with notable edema and increased warmth to touch of left upper extremity overall improving)
Psych: Calm
A/P:
Left Upper Extremity Cellulitis, likely residual infection from prior dog bite in immunocompromised patient
-Continue IV Unasyn
- Doppler no DVT
- I left a message to his outpatient oncologist and to call back, Dr. John Kagn-[phone]; [phone]
Acute diarrhea
- Check C Diff stools
- If above negative can treat symptomatically
- start Probiotics
Multiple Myeloma
-Patient maintained on Darzalex as outpatient
Chronic Normocytic Anemia
-Hgb at baseline
CKD Stage IV
-Creatinine at baseline
Hyperlipidemia
-Continue rosuvastatin
Anxiety / Depression
-Continue bupropion and buspirone
-Continue alprazolam prn
BPH
-Continue tamsulosin
DVT proph: Heparin SQ
Code Status: Full Code
Anticipated Discharge: 24 - 48 hours
Subjective/Interval History
-
Date of Service: July 03, 2024
Patient erythema is decreasing, swelling is about the same. He complains of diarrhea and abdominal discomfort. Afebrile
Objective Data
-
Labs:
Laboratory Results
07/03/24
06:28
WBC 8.0
Hgb 9.2 L
Hct 27.4 L
Plt Count 218
Sodium Pending
Potassium Pending
Chloride Pending
Carbon Dioxide Pending
BUN Pending
Creatinine Pending
Glucose Pending
Calcium Pending
Vital Signs:
Vital Signs
Temp Pulse Resp BP Pulse Ox
97.6 F 91 14 122/53 98
07/02/24 15:44 07/02/24 15:44 07/02/24 15:44 07/02/24 15:44 07/02/24 15:44
I&O
07/02/24 07/03/24 07/04/24
06:59 06:59 06:59
Intake Total 900 / 900
Balance 900 / 900
[2024-07-03 07:31] VITALS: BP 141/74
[2024-07-03 07:39] LABS: Blood Urea Nitrogen 37 mg/dl (9-20); Calcium 10.4 mg/dl (8.4-10.2); Carbon Dioxide 21 mmol/L (22-30); Chloride 116 mmol/L (98-107); Estimated Creatinine Clearance 23 ml/min; Glucose 102 mg/dl (70-99); Potassium 3.9 mmol/L (3.5-5.1); Sodium 144 mmol/L (135-145); eGFR 30.47
[2024-07-03] MEDS: HEPARIN 5000 UNITS SC ×2 (08:47→21:00)
[2024-07-03] MEDS: FLOMAX 0.4 MG PO ×2 (08:48→21:00)
[2024-07-03] MEDS: ZOVIRAX 400 MG PO ×2 (08:49→21:00)
[2024-07-03] MEDS: CRESTOR 20 MG PO (08:49)
[2024-07-03] MEDS: BUSPAR 15 MG PO ×2 (08:49→21:00)
[2024-07-03] MEDS: WELLBUTRIN XL (24 hour extended release) 150 MG PO (08:49)
[2024-07-03] MEDS: UNASYN IV ×2 (09:06→21:34)
--- NOTE | 2024-07-03 10:20 | CM ---
Patient seen at bedside with
cont IV antibiotic
PLAN: Home, no needs anticipated
[2024-07-03] MEDS: FLORASTOR 250 MG PO ×2 (14:18→21:00)
[2024-07-03] MEDS: IMODIUM 2 MG PO ×2 (14:18→23:21)
[2024-07-03 14:31] VITALS: BP 129/55
[2024-07-03] MEDS: XALATAN OPHTHALMIC SOLUTION 1 DROP BOTH EYES (21:35)
[2024-07-03 23:00] VITALS: BP 133/64
[2024-07-04 07:15] LABS: % Basophils 1.1 % (0-2); % Eosinophils 8.2 % (0-6); % Immature Granulocytes 0.3 % (0-0.5); % Lymphocytes 12.8 % (20.5-51.1); % Monocytes 15.3 % (1.7-9.3); % Neutrophils 62.3 % (42.2-75.2); Absolute Basophils 0.1 10^3/uL (0-0.2); Absolute Eosinophils 0.6 10^3/uL (0-0.7); Absolute Lymphocytes 0.9 10^3/uL (1.2-3.4); Absolute Monocytes 1.1 10^3/uL (0.1-0.6); Absolute Neutrophils 4.4 10^3/uL (1.4-6.5); Hematocrit 26.4 % (39.0-52.0); Hemoglobin 8.8 g/dL (13.0-18.0); Mean Corp Hgb Conc. 33.3 g/dL (33.0-37.0); Mean Corpuscular Hgb 29.6 pg (27.0-31.0); Mean Corpuscular Volume 88.9 fL (80.0-94.0); Mean Platelet Volume 11.2 fL (7.4-10.4); Nucleated Red Blood Cells % 0 % (-); Platelet Count 228 10^3/uL (130-400); Red Blood Cell Count 2.97 10^6/uL (4.70-6.10); Red Cell Dist. Width 12.5 % (11.5-14.5)
[2024-07-04 07:29] VITALS: BP 110/49
[2024-07-04 07:36] LABS: Blood Urea Nitrogen 35 mg/dl (9-20); Calcium 10.1 mg/dl (8.4-10.2); Carbon Dioxide 20 mmol/L (22-30); Chloride 116 mmol/L (98-107); Estimated Creatinine Clearance 24 ml/min; Glucose 96 mg/dl (70-99); Potassium 4.3 mmol/L (3.5-5.1); Sodium 143 mmol/L (135-145)
[2024-07-04] MEDS: BUSPAR 15 MG PO ×2 (08:29→20:39)
[2024-07-04] MEDS: CRESTOR 20 MG PO (08:29)
--- NOTE | 2024-07-04 08:29 | W.PN.HOSP.TC ---
Today's Communication/Plan
-
IV antibiotics.
Assessment / Plan
Assessment / Plan
Physical exam:
General: Well Developed, Well Nourished and No Apparent Distress
HEENT: Normocephalic, Atraumatic and Moist Mucous Membranes
Respiratory: Clear to Auscultation; Negative Wheezes, Rales or Rhonchi
Cardiac: Regular Rhythm and S1/S2
GI: Soft, Nontender and Nondistended
Musculoskeletal: No Clubbing, No Cyanosis and No Edema
Neuro: Awake, Alert and Oriented, (Mild erythema with notable edema and increased warmth to touch of left upper extremity overall improving)
Psych: Calm
A/P:
Left Upper Extremity Cellulitis, likely residual infection from prior dog bite in immunocompromised patient
-Continue IV Unasyn
- Doppler no DVT
- I left a message to his outpatient oncologist and to call back, Dr. John Kang-[phone]; [phone]--> discussed with oncologist last evening and they agree with current treatment and will pursue further oncological treatment
next week providing he remains stable.
- Discussed with patient needs to have elevation of left upper extremity
Acute diarrhea
- Check C Diff stools negative
- Imodium as needed
- Continue probiotics
Multiple Myeloma
-Patient maintained on Darzalex as outpatient
Chronic Normocytic Anemia
-Hgb at baseline
CKD Stage IV
-Creatinine at baseline
Hyperlipidemia
-Continue rosuvastatin
Anxiety / Depression
-Continue bupropion and buspirone
-Continue alprazolam prn
BPH
-Continue tamsulosin
DVT proph: Heparin SQ
Code Status: Full Code
Anticipated Discharge: Within 24 hours
Subjective/Interval History
-
Date of Service: July 04, 2024
Patient erythema in the arm improving. Edema somewhat about the same. Tenderness improved. Diarrhea improving. Afebrile
Objective Data
-
Labs:
Laboratory Results
07/04/24
06:31
WBC 7.0
Hgb 8.8 L
Hct 26.4 L
Plt Count 228
Sodium 143
Potassium 4.3
Chloride 116 H
Carbon Dioxide 20 L
BUN 35 H
Creatinine 2.0 H
Glucose 96
Calcium 10.1
Vital Signs:
Vital Signs
Temp Pulse Resp BP Pulse Ox
98.2 F 98 17 110/49 98
07/04/24 07:29 07/04/24 07:29 07/04/24 07:29 07/04/24 07:29 07/04/24 07:29
I&O
07/03/24 07/04/24 07/05/24
06:59 06:59 06:59
Intake Total 900 / 900 1800 / 1800
Output Total 400 / 400
Balance 900 / 900 1400 / 1400
[2024-07-04] MEDS: HEPARIN 5000 UNITS SC ×2 (08:30→20:39)
[2024-07-04] MEDS: FLOMAX 0.4 MG PO ×2 (08:30→20:38)
[2024-07-04] MEDS: WELLBUTRIN XL (24 hour extended release) 150 MG PO (08:30)
[2024-07-04] MEDS: ZOVIRAX 400 MG PO ×2 (08:35→20:39)
[2024-07-04] MEDS: FLORASTOR 250 MG PO ×2 (08:35→20:38)
[2024-07-04] MEDS: UNASYN IV ×2 (09:49→21:31)
--- NOTE | 2024-07-04 10:28 | CM ---
Patient seen at bedside with
cont IV antibiotic, Stool testing neg c-diff
PLAN: Home, no needs when medically stable
--- NOTE | 2024-07-04 12:10 | PTCARENOTE ---
Patient ambulating in room with a steady gait. Patient took shower today. Patient has no c/o pain in LUE. LUE is red, warm, and swollen. Patient states, 'It looks much better and not as red.' Patient tolerating 100% of diet. Call clay in reach.
[2024-07-04 14:57] VITALS: BP 118/66
[2024-07-04] MEDS: IMODIUM 2 MG PO ×2 (15:48→22:09)
--- NOTE | 2024-07-04 16:02 | PTCARENOTE ---
Patient c/o loose stools and requesting Imodium.
[2024-07-04] MEDS: XALATAN OPHTHALMIC SOLUTION 1 DROP BOTH EYES (21:31)
[2024-07-04 23:00] VITALS: BP 129/52
[2024-07-05 07:05] VITALS: BP 124/54
[2024-07-05] MEDS: HEPARIN 5000 UNITS SC (09:03)
[2024-07-05] MEDS: CRESTOR 20 MG PO (09:03)
[2024-07-05] MEDS: BUSPAR 15 MG PO (09:03)
[2024-07-05] MEDS: FLOMAX 0.4 MG PO (09:03)
[2024-07-05] MEDS: ZOVIRAX 400 MG PO (09:03)
[2024-07-05] MEDS: WELLBUTRIN XL (24 hour extended release) 150 MG PO (09:03)
[2024-07-05] MEDS: FLORASTOR 250 MG PO (09:04)
[2024-07-05] MEDS: UNASYN IV (09:04)
--- NOTE | 2024-07-05 11:08 | W.PN.HOSP.TC ---
Today's Communication/Plan
-
Discharge planning today
Assessment / Plan
Assessment / Plan
Physical exam:
General: Well Developed, Well Nourished and No Apparent Distress
HEENT: Normocephalic, Atraumatic and Moist Mucous Membranes
Respiratory: Clear to Auscultation; Negative Wheezes, Rales or Rhonchi
Cardiac: Regular Rhythm and S1/S2
GI: Soft, Nontender and Nondistended
Musculoskeletal: No Clubbing, No Cyanosis and No Edema(cellulitis improved)
Neuro: Awake, Alert and Oriented, no neurological deficit
Psych: Calm
A/P:
Left Upper Extremity Cellulitis, likely residual infection from prior dog bite in immunocompromised patient
-Continue IV Unasyn
- Doppler no DVT
- I left a message to his outpatient oncologist and to call back, Dr. John Kang-[phone]; [phone]--> discussed with oncologist last evening and they agree with current treatment and will pursue further oncological treatment
next week providing he remains stable.
- Discussed with patient needs to have elevation of left upper extremity
- Discussed with patient and today on 07/05 and planning to discharge today. Switch to oral antibiotics.
Acute diarrhea
- Check C Diff stools negative
- Imodium as needed
- Continue probiotics
Multiple Myeloma
-Patient maintained on Darzalex as outpatient
Chronic Normocytic Anemia
-Hgb at baseline
CKD Stage IV
-Creatinine at baseline
Hyperlipidemia
-Continue rosuvastatin
Anxiety / Depression
-Continue bupropion and buspirone
-Continue alprazolam prn
BPH
-Continue tamsulosin
DVT proph: Heparin SQ
Code Status: Full Code
Anticipated Discharge: Today
Subjective/Interval History
-
Date of Service: July 05, 2024
No new complaints. Left arm improved.
Objective Data
-
Vital Signs:
Vital Signs
Temp Pulse Resp BP Pulse Ox
98.7 F 88 16 124/54 98
07/05/24 07:05 07/05/24 07:05 07/05/24 07:05 07/05/24 07:05 07/05/24 07:05
I&O
07/04/24 07/05/24 07/06/24
06:59 06:59 06:59
Intake Total 1800 / 1800 1200 / 1200
Output Total 400 / 400
Balance 1400 / 1400 1200 / 1200
--- NOTE | 2024-07-05 11:11 | W.DCSUMMARY ---
Discharge Summary
Discharge Data
Date of Admission: 07/01/24
Date of Discharge: 07/05/24
Total time spent discharging patient (in min): 32
-
Pending Results: No
Hospital Course
Patient 84 years old male with history of multiple myeloma/monoclonal gammopathy, CKD, hypertension, hyperlipidemia, depression anxiety, BPH came into the hospital with erythema and swelling of the left upper extremity. Patient had a dog bite a few
weeks prior to his presentation and had taken some antibiotic without significant success. He denied fever or chills. Patient had a Doppler of his left upper extremity unremarkable for acute pathology. Patient was placed on IV antibiotics he
responded well. We communicated with his outpatient oncologist. Patient white blood cell count remained stable and afebrile and hemodynamically stable. His renal function also remained stable. He responded well and we switched his regimen to
oral antibiotics that he will continue as outpatient. He will have close follow-up as outpatient with PCP and oncologist. No other events were noticed. He will be discharged in relatively stable condition today.
Discharge duration: 32 minutes
Discharge Plan
-
Patient Disposition: Home (Routine Discharge)
Discharge Diagnosis/Procedures: Cellulitis left upper extremity. Multiple myeloma. Chronic kidney disease.
Diet: Low Cholesterol
Activity: As tolerated
Blood Work: Please PCP to order CBC, BMP within 1 week
Referrals:
Preston Lee MD [Family Provider] - in less than 1 week
Prescriptions:
New
amoxicillin-pot clavulanate [Augmentin] 500-125 mg tablet
1 tab PO BID 14 Days Qty: 28 0RF
doxycycline hyclate 100 mg capsule
100 mg PO BID 14 Days Qty: 28 0RF
Saccharomyces boulardii [Florastor] 250 mg capsule
250 mg PO BID 14 Days Qty: 28 0RF
Continued
latanoprost 0.005 % Drops
1 drp BOTH EYES HS
alprazolam 0.25 mg Tablet
0.25 mg PO DAILYPRN PRN (Reason: anxiety)
tamsulosin 0.4 mg Capsule
0.4 mg PO BID
buspirone 10 mg Tablet
15 mg PO BID
rosuvastatin 20 mg Tablet
20 mg PO DAILY
bupropion HCl 150 mg Tablet Extended Release 24 Hr
150 mg PO DAILY
cholecalciferol (vitamin D3) 50 mcg (2,000 unit) Tablet
50 mcg PO DAILY
acyclovir 400 mg Tablet
400 mg PO BID
tadalafil 5 mg Tablet
5 mg PO DAILYPRN PRN (Reason: ed)
Darzalex Faspro 1,800 mg-30,000 unit/15 mL Solution
15 ml SC Q4W
Discontinued
amoxicillin-pot clavulanate 500-125 mg tablet
1 tab PO BID Qty: 20 0RF
Rx Instructions:
for 10 days starting 06/25/24
Discharge Orders:
Discharge Patient (As Directed); Ordered 07/05/24
Ordered By: Lino Knapp
Discharge Date and Time
Discharge Date/Time: 07/05/24 11:58
Print Language: CZECH
--- NOTE | 2024-07-05 11:42 | CM ---
Patient seen at bedside with
Discharge today
IMM explained & signed. In chart
PLAN: home, no needs
to transport
== END 2024-07-05 11:58 | disposition home or self-care (01) | DRG 603 ==
LOC: 3 WEST ACU 16:40
PROVIDERS: Emergency Medicine; Physician Assistant Medical; ADMITTING PHYSICIAN Hospitalist; ATTENDING PHYSICIAN Hospitalist; EMERGENCY PHYSICIAN Emergency Medicine; FAMILY PHYSICIAN Internal Medicine
DX: L03.114 Cellulitis of left upper limb (principal); C90.00 Multiple myeloma not having achieved remission; N18.4 Chronic kidney disease, stage 4 (severe); D84.9 Immunodeficiency, unspecified; E78.5 Hyperlipidemia, unspecified; F41.9 Anxiety disorder, unspecified; F32.A Depression, unspecified; N40.0 Benign prostatic hyperplasia without lower urinary tract symptoms; I12.9 Hypertensive chronic kidney disease with stage 1 through stage 4 chronic kidney disease, or unspecified chronic kidney disease; D63.1 Anemia in chronic kidney disease; W54.0XXD Bitten by dog, subsequent encounter; Z85.51 Personal history of malignant neoplasm of bladder; H54.8 Legal blindness, as defined in USA; D47.2 Monoclonal gammopathy
CPT/HCPCS: 71046; 80048; 80053; 85025; 85027; 87324; 87449; 93971; 96374; 99285

== ENCOUNTER → 2024-07-12 10:48 | Outpatient (REF) | payer MEDICARE, BC, SELFPAY ==
[2024-07-12 11:29] LABS: % Eosinophils 3.8 % (0-6); % Immature Granulocytes 0.4 % (0-0.5); % Lymphocytes 13.2 % (20.5-51.1); % Monocytes 9.8 % (1.7-9.3); % Neutrophils 70.8 % (42.2-75.2); Absolute Basophils 0.2 10^3/uL (0-0.2); Absolute Eosinophils 0.3 10^3/uL (0-0.7); Absolute Monocytes 0.8 10^3/uL (0.1-0.6); Absolute Neutrophils 5.6 10^3/uL (1.4-6.5); Hematocrit 27.8 % (39.0-52.0); Hemoglobin 9.2 g/dL (13.0-18.0); Mean Corp Hgb Conc. 33.1 g/dL (33.0-37.0); Mean Corpuscular Hgb 30.4 pg (27.0-31.0); Mean Corpuscular Volume 91.7 fL (80.0-94.0); Mean Platelet Volume 10.5 fL (7.4-10.4); Nucleated Red Blood Cells % 0 % (-); Platelet Count 291 10^3/uL (130-400); Red Blood Cell Count 3.03 10^6/uL (4.70-6.10); Red Cell Dist. Width 13.2 % (11.5-14.5); White Blood Cell Count 7.9 10^3/uL (4.8-10.8)
[2024-07-12 12:55] LABS: Blood Urea Nitrogen 56 mg/dl (9-20); Calcium 10.2 mg/dl (8.4-10.2); Carbon Dioxide 19 mmol/L (22-30); Chloride 114 mmol/L (98-107); Glucose 87 mg/dl (70-99); Potassium 4.6 mmol/L (3.5-5.1); Sodium 144 mmol/L (135-145); eGFR 25.96
== END ==
LOC: REG 10:48
PROVIDERS: ATTENDING PHYSICIAN Internal Medicine; OTHER PHYSICIAN Internal Medicine; OTHER PHYSICIAN Urology
DX: N18.31 Chronic kidney disease, stage 3a (principal); D69.2 Other nonthrombocytopenic purpura; C90.00 Multiple myeloma not having achieved remission
CPT/HCPCS: 36415; 80048; 85025

== ENCOUNTER → 2024-07-18 13:23 | Outpatient (REF) | payer MEDICARE, BC, SELFPAY ==
[2024-07-18 15:00] LABS: Protein/creatinine Ratio 0.1; Urine Protein 10 mg/dl
[2024-07-18 15:05] LABS: Microalbumin, Random Urine 1.5 mg/dl (0.6-1.7)
== END ==
LOC: REG 13:23
PROVIDERS: ATTENDING PHYSICIAN Internal Medicine; FAMILY PHYSICIAN Internal Medicine; OTHER PHYSICIAN Internal Medicine; REFERRING PHYSICIAN Urology
DX: N18.4 Chronic kidney disease, stage 4 (severe) (principal)
CPT/HCPCS: 82043; 82570; 84156

== ENCOUNTER → 2024-10-17 10:39 | Outpatient (REF) | payer MEDICARE, BC, SELFPAY ==
[2024-10-17 11:41] LABS: Microalbumin, Random Urine 1.2 mg/dl (0.6-1.7)
== END ==
LOC: REG 10:39
PROVIDERS: ATTENDING PHYSICIAN Internal Medicine; FAMILY PHYSICIAN Internal Medicine
DX: N18.4 Chronic kidney disease, stage 4 (severe) (principal)
CPT/HCPCS: 82043; 82570; 84156

== ENCOUNTER → 2025-01-20 07:21 | Outpatient (REF) | payer MEDICARE, BC, SELFPAY ==
[2025-01-20 08:36] LABS: ALT (SGPT) 22 U/L (0-50); AST (SGOT) 23 U/L (17-59); Albumin 4.4 g/dl (3.5-5.0); Alkaline Phosphatase 89 U/L (38-126); Blood Urea Nitrogen 42 mg/dl (9-20); Calcium 9.9 mg/dl (8.4-10.2); Carbon Dioxide 17 mmol/L (22-30); Chloride 111 mmol/L (98-107); Glucose 96 mg/dl (70-99); Potassium 4.5 mmol/L (3.5-5.1); Sodium 139 mmol/L (135-145); Total Protein 6.9 g/dl (6.3-8.2); eGFR 21.57
[2025-01-20 08:39] LABS: Vitamin D, 25-OH*** 59.9 ng/mL (30-80)
== END ==
LOC: REG 07:21
PROVIDERS: ATTENDING PHYSICIAN Internal Medicine Endocrinology, Diabetes & Metabolism; FAMILY PHYSICIAN Internal Medicine; OTHER PHYSICIAN Internal Medicine; OTHER PHYSICIAN Internal Medicine Cardiovascular Disease; OTHER PHYSICIAN Urology
DX: E83.52 Hypercalcemia (principal); E21.5 Disorder of parathyroid gland, unspecified; E55.9 Vitamin D deficiency, unspecified
CPT/HCPCS: 36415; 80053; 82306; 82330; 83970; 84443

== ENCOUNTER → 2025-01-27 11:00 | Outpatient (REF) | payer MEDICARE, BC, SELFPAY ==
[2025-01-27 12:42] LABS: Microalbumin, Random Urine 5.0 mg/dl (0.6-1.7)
== END ==
LOC: RAD 11:00
PROVIDERS: ATTENDING PHYSICIAN Internal Medicine Endocrinology, Diabetes & Metabolism; FAMILY PHYSICIAN Internal Medicine; OTHER PHYSICIAN Internal Medicine; OTHER PHYSICIAN Urology; REFERRING PHYSICIAN Internal Medicine
DX: E83.52 Hypercalcemia (principal); E21.5 Disorder of parathyroid gland, unspecified; M81.0 Age-related osteoporosis without current pathological fracture; N18.4 Chronic kidney disease, stage 4 (severe)
CPT/HCPCS: 77080; 82043; 82570; 84156

== ENCOUNTER → 2025-01-28 15:08 | Outpatient (REF) | payer MEDICARE, BC, SELFPAY ==
[2025-01-28 16:13] LABS: ALT (SGPT) 25 U/L (0-50); AST (SGOT) 26 U/L (17-59); Albumin 4.2 g/dl (3.5-5.0); Alkaline Phosphatase 88 U/L (38-126); Blood Urea Nitrogen 41 mg/dl (9-20); Calcium 10.0 mg/dl (8.4-10.2); Carbon Dioxide 21 mmol/L (22-30); Chloride 108 mmol/L (98-107); Glucose 110 mg/dl (70-99); Potassium 4.5 mmol/L (3.5-5.1); Sodium 137 mmol/L (135-145); Total Protein 6.9 g/dl (6.3-8.2); eGFR 21.57
== END ==
LOC: REG 15:08
PROVIDERS: ATTENDING PHYSICIAN Internal Medicine; FAMILY PHYSICIAN Internal Medicine; REFERRING PHYSICIAN Urology
DX: N18.4 Chronic kidney disease, stage 4 (severe) (principal)
CPT/HCPCS: 36415; 80053